=== PATIENT | female | born 1995 | race Asian ===

== ENCOUNTER 2018-08-29 16:30 | Inpatient (IN) | payer OTHER ==
[~2018-08-29] VITALS: Ht 160 cm; Wt 76.8 kg
[~2018-08-29 16:30] MED LIST: PRENAT PO; [UNRECOGNIZED DRUG - CODE] PO
[2018-08-29 18:11] VITALS: Ht 160 cm; Wt 76.8 kg
[2018-08-29 18:12] VITALS: BP 125/80
[2018-08-29] MEDS: LACTATED RINGER'S 1,000 ML IV SCH (20:26)
[2018-08-29] MEDS ORDERED: LIDOCAINE 1% (MPF) 30 ML INJ INJ PRN (20:30)
[2018-08-29] MEDS ORDERED: MISOPROSTOL 200 MCG TAB PR PRN (20:30)
[2018-08-29] MEDS ORDERED: BUTORPHANOL 2 MG INJ IV PRN (20:30)
[2018-08-29] MEDS ORDERED: METHYLERGONOVINE 0.2 MG INJ IM PRN (20:30)
[2018-08-29] MEDS ORDERED: OXYTOCIN 30 UNITS/LR 500 ML IV SCH ×3 (20:30→21:00)
[2018-08-29] MEDS ORDERED: CARBOPROST 250 MCG INJ IM PRN (20:30)
[2018-08-29] MEDS ORDERED: OXYTOCIN 30 UNITS/LR 500 ML IV PRN (20:30)
[2018-08-29] MEDS ORDERED: MISOPROSTOL 50 MCG CAPSULE VAG ONE (21:00)
--- NOTE | 2018-08-29 21:13 | HP ---
Date/Time of Note Date/Time of Note DATE: 08/29/18 TIME: 21:09 OB - History Hx of Present Free Text/Dictation 22 years old 2 para 1001 with single intrauterine at 39 weeks with a MARGARITA of 09/05/2018 complaining of vaginal spotting. She states good movement. She denies nausea, vomiting, shortness of breath, chest pain, headache, visual changes or LOF. Chief Complaint: Vaginal spotting Estimated Due Date: Sep 05, 2018 : 2 Para: 1 Spontaneous : 0 Therapeutic : 0 Care: Good Care Ultrasounds: Normal mid trimester US Obstetrical Complications: None Medical Complications: None Past Family/Social History * Past Medical, Surgical, Family and Obstetric Histories reviewed from chart. Blood Type: O+ Rubella: immune RPR/VDRL: Negative GBS Status: Negative HBsAG: Negative OB Admission Exam Vital Signs Vital Signs Vital Signs Date Temp Pulse Resp B/P (MAP) Pulse Ox O2 O2 Flow FiO2 Time Delivery Rate 08/29/18 98.2 125/80 18:12 (95) Physical Exam HEENT: WNL Heart: Rhythm Normal Lungs: Clear (Valid S1 position on Monday) Abdomen: WNL Extremities: Normal Reflexes: Normal (Delivered) Cervical Dilatation: 1cm Effacement: 25% Station: -2 Membranes: Intact Heart Rate: 130's Accelerations: Accelerations Present Decelerations: No Decelerations Varibility: Moderate Contractions on Admission: >10 Minutes Apart Intensity: Mild Last 72 hours Lab Results CBC & BMP 08/29/18 20:05 OB Assessment/Plan Other plan: 22 years old 2 para 1001 with single intrauterine at 39 weeks with oligo - FHR: No sign of metabolic acidosis- Category I - Continuous EFM, toco - CBC, blood type and screen - Analgesia options with R/B/A discussed in detail with patient - Epidural per patient request - Please see the orders - O+/Rubella: Immune - GBS: Negative Admission, procedures, expectations, risks and possible complications have been discussed in detail with the patient. Risk of vaginal delivery including but not limited to bleeding, infection, cervical laceration, placental retention, injury to fetus, blood transfusion, blood transfusion related infection, risk of anesthesia, adhesion, cervical laceration, episiotomy/laceration, possible delivery with risk of bleeding, infection, injury to other organs (bowel, bladder, ureter, vessels, nerves), injury to fetus, blood transfusion, blood transfusion related infection, risk of anesthesia, scar and hernia formation, needs for future , removal of uterus or any other indicated surgery discussed with the patient. She expressed understanding and repeats the risks. All of her questions were answered. She signed the informed consent. PHYSICIAN'S VERIFICATION OF INFORMED CONSENT The patient was counseled regarding the procedure, its indications, risks, potential complications and alternatives and any questions were answered. Consent was obtained. PLANNED PROCEDURE/TREATMENT: Vaginal delivery, episiotomy, repair of laceration possible delivery JAY PAYNE Aug 29, 2018 21:13
--- NOTE | 2018-08-29 23:11 | TRIAGE ---
OB Triage Datetime Report Generated by CPN: 08/29/2018 23:11 Datetime: 08/29/2018 22:54 Assessment Type: Admission Assessment Vaginal Bleeding: None Maternal Assessment Level of Consciousness: Fully Conscious DTR's/Clonus: DTRs 2+; No Clonus Headache: Denies Blurred Vision: No Respiratory Effort: Unlabored; Regular Rhythm; Equal Expansion Breath Sounds, Left: Clear and Equal Breath Sounds, Right: Clear and Equal Nausea/Vomiting: Denies RUQ Epigastric Pain: Denies Lower Extremities Edema: Bilateral Lower Extremities (Annotations: TRACE) Upper Extremities Edema: Bilateral Upper Extremities (Annotations: TRACE) Facial Edema: None Fall Risk Assessment History of Falling: (0) No Secondary Diagnosis: (0) No Ambulatory Aid: (0) Bedrest/Nurse Assist IV Therapy: (20) Yes Gait: (0) Normal/Bedrest/Immobile Mental Status: (0) Oriented to Own Ability Fall Score: 20 Fall Risk Score Definition: No Risk: No action required Pain Assessment Pain Scale: 0 Pain Presence: None/Denies Pain Type: N/A Membrane Status: Intact Datetime: 08/29/2018 22:52 Time of Arrival: 08/29/2018 22:53 EGA: 39.0 Arrived By: Ambulatory Arrived From: Home Datetime: 08/29/2018 18:25 Comments: up to the Br Datetime: 08/29/2018 18:13 Stage of : OB Triage Labor Evaluation Frequency: 1-7 Monitor Mode: External Duration (sec)2399: 60-80 Pattern: Normal: <= 5 Contractions in 10 Minutes Resting Tone [place]: Relaxed Heart Rate FHR Baseline Rate: 135 Monitor Mode: External US Variability: Moderate 6-25 bpm Accelerations: 15X15 Decelerations: None Category: Category I Datetime: 08/29/2018 17:55 Vaginal Exam Dilatation (cms): 1.0 Effacement (%): 70 Station: -3 Exam By: Justina VALENTIN Datetime: 08/29/2018 17:45 Stage of : OB Triage Assessment Type: Triage Maternal Assessment Level of Consciousness: Fully Conscious DTR's/Clonus: DTRs 2+; No Clonus Headache: Denies Blurred Vision: No Respiratory Effort: Unlabored; Regular Rhythm; Equal Expansion Breath Sounds, Left: Clear and Equal Breath Sounds, Right: Clear and Equal Nausea/Vomiting: Denies RUQ Epigastric Pain: Denies Lower Extremities Edema: None Degree: None Upper Extremities Edema: None Degree: None Facial Edema: None Fall Risk Assessment History of Falling: (0) No Secondary Diagnosis: (0) No Ambulatory Aid: (0) Bedrest/Nurse Assist IV Therapy: (0) No Gait: (0) Normal/Bedrest/Immobile Mental Status: (0) Oriented to Own Ability Fall Score: 0 Fall Risk Score Definition: No Risk: No action required Monitor Mode: External Monitor Mode: External US Datetime: 08/29/2018 17:41 Time of Arrival: 08/29/2018 16:21 EGA: 39.0 Arrived By: Ambulatory Arrived From: Home Chief Complaint: SPOTTING Movement: Present Contractions: Denies/Absent Rupture of Membranes: Denies Vaginal Bleeding: Scant Vaginal Discharge: Present Recent Sexual Intercouse: Denies Abdominal Trauma: Not Applicable Patient Complaints: Other Time Provider Notified: 08/29/2018 17:35 Provider Notified: KERRY Initial Plan: JASON SANTANA MD
[2018-08-29] MEDS: MISOPROSTOL 50 MCG CAPSULE VAG SCH (23:22)
[2018-08-30] MEDS: LACTATED RINGER'S 1,000 ML IV SCH ×5 (02:35→21:56)
[2018-08-30] MEDS: MISOPROSTOL 50 MCG CAPSULE VAG SCH ×4 (03:34→16:03)
[2018-08-30] MEDS ORDERED: OXYTOCIN 30 UNITS/LR 500 ML IV SCH ×2 (08:00→23:30)
[2018-08-30] MEDS ORDERED: MINERAL OIL LIGHT 10 ML VIAL TOP ONE (08:00)
[2018-08-30] MEDS ORDERED: IBUPROFEN 600 MG TAB PO PRN (12:30)
--- NOTE | 2018-08-30 19:38 | PREAC ---
Date/Time of Note Date/Time of Note DATE: 08/30/18 TIME: 19:37 Anesthesia Eval and Record Evaluation Time Pre-Procedure Interview DATE: 08/30/18 TIME: 19:37 Age 22 Sex female NPO: 8 hrs Preoperative diagnosis labor pain Planned procedure epidural Past Medical History Past Medical History: None Surgery & Anesthesia Issues No known issue Meds Anticoagulation: No Beta Citlaly within 24 hr: No Reason Beta Citlaly not given: Pt. not on B-Citlaly Reported Medications Ferrous Sulfate (Iron Supplement) 325 Mg Tablet, 325 MG PO DAILY, TAB 02/10/16 Multivit/Min/Fol Ac/Iron/Pren* ( S*) 1 Tab Tab, 1 TAB PO DAILY, TAB 02/10/16 Current Medications Lactated Ringer's 1,000 ml @ 125 mls/hr Q8H IV Last administered on 08/30/18at 18:45; Admin Dose 125 MLS/HR; Start 08/29/18 at 20:18 Butorphanol Tartrate (Stadol) 2 mg Q2H PRN IV .PAIN Last administered on 08/30/18at 15:02; Admin Dose 2 MG; Start 08/29/18 at 20:30 Lidocaine (Xylocaine 1% (Mpf)) 30 ml ONCE PRN INJ .EPISIOTOMY; Start 08/29/18 at 20:30 Oxytocin/Lactated Ringer's 500 ml @ 500 mls/hr ONCE POST IV ; Start 08/29/18 at 20:30 Oxytocin/Lactated Ringer's 500 ml @ 125 mls/hr POST IV ; Start 08/29/18 at 20:30 Oxytocin/Lactated Ringer's 500 ml @ 0 mls/hr ONCE PRN IV .VAGINAL BLEEDING; Start 08/29/18 at 20:30 Methylergonovine Maleate (Methergine) 0.2 mg ONCE PRN IM .VAGINAL BLEEDING; Start 08/29/18 at 20:30 Carboprost Tromethamine (Hemabate) 250 mcg ONCE PRN IM .VAGINAL BLEEDING; Start 08/29/18 at 20:30 Misoprostol (Cytotec) 1,000 mcg ONCE PRN AR .VAGINAL BLEEDING; Start 08/29/18 at 20:30 Oxytocin/Lactated Ringer's 500 ml @ 0 mls/hr FOR INDUCTION IV ; Start 08/29/18 at 21:00 Misoprostol (Cytotec 50 Mcg Capsule) 50 mcg Q4H VAG Last administered on 08/30/18at 16:03; Admin Dose 50 MCG; Start 08/29/18 at 23:00 Oxytocin/Lactated Ringer's 500 ml @ 0 mls/hr FOR AUGMENTATION IV ; Start 08/30/18 at 08:00 Ibuprofen (Motrin) 600 mg ONCE PRN PO .PAIN 1-5; Start 08/30/18 at 12:30 Meds reviewed: Yes Allergies Coded Allergies: No Known Drug Allergies (Verified Allergy, Unknown, 08/29/18) Allergies Reviewed: Yes Labs/Studies Labs Reviewed: Reviewed by anesthesiologist Result Diagram: 08/29/182004 Laboratory Tests 08/29/18 20:05 Blood Bank Test 08/29/18 20:05 Antibody Screen NEGATIVE Blood Type O POSITIVE Rh Immune Globulin Candidate NO test: Positive Studies: ECG (n/a), CXR (n/a) Pre-procedure Exam Last vitals Vital Signs Date Temp Pulse Resp B/P (MAP) Pulse Ox O2 O2 Flow FiO2 Time Delivery Rate 08/29/18 98.2 125/80 18:12 (95) Airway: Adequate mouth opening Mallampati: Mallampati I Teeth: Normal Lung: Normal Heart: Normal ASA Physical Status ASA physical status: 2 Emergency: None Planned Anesthetic Neuraxial: Epidural Pre-operative Attestations Prior to commencing anesthesia and surgery, the patient was re-evaluated, there was verification of: *The patient's identity *The results of appropriate recent lab work and preoperative vital signs *The above evaluation not changing prior to induction *Anesthetic plan, risk benefits, alternative and complications discussed with patient/family; questions answered; patient/family understands, accepts and wishes to proceed. YENI GANDHI MD Aug 30, 2018 19:38
[2018-08-30] MEDS ORDERED: NALOXONE (0.4 MG/ML) INJ IV PRN (20:30)
[2018-08-30] MEDS ORDERED: FENTAnyl 2MCG/ML-ROPIV 0.2% 100 ML BAG EPI SCH (20:30)
[2018-08-31] MEDS ORDERED: MINERAL OIL LIGHT 10 ML VIAL TOP ONE (06:30)
--- NOTE | 2018-08-31 06:39 | LDN ---
Date/Time of Note Date/Time of Note DATE: 08/31/18 TIME: 06:37 Delivery Summary of normal male Weeks of Gestation 39w Placenta Delivered: Spontaneously, Intact & Complete Meconium: none Episiotomy: No Perineal laceration: 2 Laceration repair: 00 ch gut Anesthesia type: Local Estimated blood loss: 80 Sponge & Needle done & correct: Yes All needle counts correct: Yes Any foreign bodies felt in the: No Infant Delivery Information Sex Sex: male Apgars 1 Minute: 8 5 Minute: 9 Suctioning Nose & mouth suctioned at jose david: Yes Delee suction performed: Yes Umbilical Cord Umbilical cord with: 3 Vessels Cord presentations: no nuchal cord Cord Blood was obtained: Yes Mother & Baby Disposition Disposition Mom & Baby to Maternity; Good: Yes Baby to NICU: No () MARIA JOHNS MD Aug 31, 2018 06:39
--- NOTE | 2018-08-31 07:45 | PAC ---
Date/Time of Note Date/Time of Note DATE: 08/31/18 TIME: 07:45 Post-Anesthesia Notes Post-Anesthesia Note Last documented vital signs Vital Signs Date Temp Pulse Resp B/P (MAP) Pulse Ox O2 O2 Flow FiO2 Time Delivery Rate 08/31/18 98.2 99 18 115/70 99 07:12 (95) Activity: WNL Respiratory function: WNL Cardiovascular function: WNL Mental status: Baseline Pain reasonably controlled: Yes Hydration appropriate: Yes Nausea/Vomiting absent: No YENI GANDHI MD Aug 31, 2018 07:45
[2018-08-31 08:20] VITALS: BP 118/86; PULSE 78; RESP 16
[2018-08-31] MEDS ORDERED: BENZOCAINE 20% 56 ML SPRAY TOP PRN (08:30)
[2018-08-31] MEDS ORDERED: OXYCODONE/ASPIRIN (4.88/325) TAB PO PRN ×2 (08:30)
[2018-08-31] MEDS ORDERED: LANOLIN HPA 1 PKT TOP PRN (08:30)
[2018-08-31] MEDS ORDERED: OXYTOCIN 30 UNITS/LR 500 ML IV PRN (08:30)
[2018-08-31] MEDS ORDERED: ZOLPIDEM 5 MG TAB PO PRN (08:30)
[2018-08-31] MEDS ORDERED: METHYLERGONOVINE 0.2 MG INJ IM PRN (08:30)
[2018-08-31] MEDS ORDERED: WITCH HAZEL/GLYCERIN PAD PR PRN (08:30)
[2018-08-31] MEDS ORDERED: CARBOPROST 250 MCG INJ IM PRN (08:30)
[2018-08-31] MEDS ORDERED: MISOPROSTOL 200 MCG TAB PR PRN (08:30)
[2018-08-31] MEDS: SENNA/DOCUSATE NA (8.6MG/50MG) TAB PO SCH ×2 (09:41→21:49)
[2018-08-31] MEDS: IBUPROFEN 600 MG TAB PO SCH ×3 (12:21→23:37)
[2018-08-31 16:00] VITALS: BP 115/76; PULSE 70; RESP 18
[2018-08-31] MEDS: LACTATED RINGER'S 1,000 ML IV SCH (20:18)
[2018-08-31 20:25] VITALS: BP 115/80; PULSE 71; RESP 17
[2018-09-01 04:00] VITALS: BP 124/77; PULSE 80; RESP 18
[2018-09-01] MEDS: LACTATED RINGER'S 1,000 ML IV SCH ×2 (04:18→12:18)
[2018-09-01] MEDS: IBUPROFEN 600 MG TAB PO SCH ×4 (05:50→23:49)
[2018-09-01 08:45] VITALS: BP 111/76; PULSE 66; RESP 16
[2018-09-01] MEDS: SENNA/DOCUSATE NA (8.6MG/50MG) TAB PO SCH ×2 (08:50→20:29)
[2018-09-01 16:15] VITALS: BP 109/69; PULSE 69; RESP 16
[2018-09-01 21:00] VITALS: BP 120/75; PULSE 66; RESP 17
[2018-09-02 03:43] VITALS: BP 116/79; PULSE 71; RESP 17
[2018-09-02] MEDS: IBUPROFEN 600 MG TAB PO SCH ×2 (05:32→12:07)
[2018-09-02 08:40] VITALS: BP 115/70; PULSE 79; RESP 16
[2018-09-02] MEDS ORDERED: DIPHTH/TET/ACEL PERTUSS (ADULT) 0.5 ML VIAL IM* ONE (09:00)
[2018-09-02] MEDS: SENNA/DOCUSATE NA (8.6MG/50MG) TAB PO SCH (09:56)
--- NOTE | 2018-09-02 11:12 | PN ---
Date/Time of Note Date/Time of Note DATE: 09/02/18 TIME: 11:10 OB Subjective Subjective Subjective Late entry note. Patient seen on 09/01/2008 PPD# 1 Patient is doing well. She denies nausea, vomiting, shortness of breath, chest pain, headache. She has been ambulating without difficulty, tolerating regular diet. Pain is well controlled on current medications OB Objective Objective Objective General: AAO X 3, comfortable, NAD, appropriate mood and affect. ABD: +BS. Soft, non-tender. Uterus 2 cm below umbilicus Flank: No CVA tenderness (B/L) LE: Mild edema. No clubbing, cyanosis, thigh or calf tenderness (B/L). Homans 'sign is negative OB Assessment/Plan Other plan: 22 years old 2 para 2001 at 39 weeks and 2 days s/p normal vaginal delivery. PPD#1 - AF, VSS - Baby is doing well, at bed side. She is bonding well - Contraception methods with R/B/A/FR discussed - Continue care - Discharge home tomorrow - Rx and instruction given - Follow up in 2 and 6 weeks at clinic JAY PAYNE Sep 02, 2018 11:12
--- NOTE | 2018-09-02 11:14 | DS ---
Date/Time of Note Date/Time of Note DATE: 09/02/18 TIME: 11:13 Obstetrical Discharge Record Final Diagnosis Final Diagnosis: Term delivered Other Final Diagnosis 22 years old 2 para 2001 at 39 weeks and 2 days s/p normal vaginal delivery. PPD#1. course was unremarkable. She is ambulating and tolerating regular diet. She is voiding without difficulty. Pain is controlled on current medication - AF, VSS - Baby is doing well, at bed side. She is bonding well - Contraception methods with R/B/A/FR discussed - Continue care - Discharge home - Rx and instruction given - Follow up in 2 and 6 weeks at clinic Complications Induction: Yes (Oligohydramnios) Condition on Discharge Physical Assessment Last Vitals: Vital Signs Date Temp Pulse Resp B/P (MAP) Pulse Ox O2 O2 Flow FiO2 Time Delivery Rate 09/02/18 98.2 71 17 116/79 Room Air 03:43 (91) Voiding: Yes Bowel Movement: Yes Breast: Soft, non-tender Fundus: Firm Calf Tenderness: No Patient Condition: Stable JAY PAYNE Sep 02, 2018 11:14
--- NOTE | 2018-09-02 19:32 | QN ---
Documentation Comment This is a late entry note for 09/01/2018 day #1 Status post Patient stable and afebrile Tolerating regular diet and ambulating and voiding without any difficulties Vital signs stable VS - Last 72 Hours, by Label Date Temp Pulse Resp B/P (MAP) Pulse Ox O2 O2 Flow FiO2 Time Delivery Rate 09/02/18 98.0 79 16 115/70 Room Air 08:40 (85) 09/02/18 98.2 71 17 116/79 Room Air 03:43 (91) 09/01/18 98.2 66 17 120/75 Room Air 21:00 (90) 09/01/18 98.3 69 16 109/69 Room Air 16:15 (82) 09/01/18 97.8 66 16 111/76 Room Air 08:45 (88) 09/01/18 98.3 80 18 124/77 Room Air 04:00 (93) 08/31/18 98.1 71 17 115/80 Room Air 20:25 (92) 08/31/18 97.9 70 18 115/76 Room Air 16:00 (89) 08/31/18 98.3 78 16 118/86 Room Air 08:20 (97) Hematology - 72 Hrs Test 09/01/18 06:40 Hematocrit 30.1 % (37.0-47.0) #L Hemoglobin 9.8 g/dl (12.0-16.0) #L Mean Corpuscular Hemoglobin 30.5 pg (29.0-33.0) Mean Corpuscular Hemoglobin Concent 32.6 g/dl (32.0-37.0) Mean Corpuscular Volume 93.8 fl (82.0-101.0) Mean Platelet Volume 11.5 fl (7.4-10.4) H Platelet Count 133 10^3/UL (140-415) #L Red Blood Count 3.21 10^6/ul (4.20-5.40) #L Red Cell Distribution Width 14.6 % (11.5-14.5) H White Blood Count 7.8 10^3/ul (4.8-10.8) Abdomen soft, fundus firm Perineum intact Extremities nontender Assessment and plan; Patient stable and doing well continue with routine care NAVEED CHASE MD Sep 02, 2018 19:32
--- NOTE | 2018-09-03 14:56 | DELSUM ---
Delivery Summary A-C Datetime Report Generated by CPN: 09/03/2018 14:56 DELIVERY PERSONNEL Template Inspector: Sujatha Mistry MATERNAL INFORMATION Delivery Anesthesia: Epidural Medications in Delivery: lidocaine, 30 units pitocin in 500ml LR Delivery QBL (ml): 80 Placenta Cultured: No Maternal Complications: Other RN Comments: oligo induction, last baby 2 yrs ago LABOR SUMMARY EDC: 09/05/2018 00:00 No. Babies in Womb: 1 Attempted: No Labor Anesthesia: None LABOR INFORMATION Reason for Induction: Oligohydramnios Onset of Labor: 08/30/2018 12:17 Complete Dilatation: 08/31/2018 05:49 Cervical Ripening Agents: Cytotec @ 50 Oxytocin: Induction Group B Beta Strep: Negative Steroids Given: None Reason Steroids Not Administered: Not Applicable MEMBRANES Membranes Rupture Method: Spontaneous Rupture of Membranes: 08/31/2018 05:50 Length of Rupture (hr): 0.28 Amniotic Fluid Color: Clear Amniotic Fluid Amount: Moderate Amniotic Fluid Odor: None STAGES OF LABOR Stage 1 hr: 17 Stage 1 min: 32 Stage 2 hr: 0 Stage 2 min: 18 Stage 3 hr: 0 Stage 3 min: 5 Total Time in Labor hr: 17 Total Time in Labor min: 55 VAGINAL DELIVERY Episiotomy: None Laceration Extension: Second Degree Laceration Type: Perineal Laceration Repair: Yes Initial Vag Sponge Count: 10 Final Vag Sponge Count: 10 Initial Vag Sharps Count: 1 Final Vag Sharps Count: 2 Sponge Count Correct: Yes; Vaginal Sweep Performed Sharps Count Correct: Yes BABY A INFORMATION Infant Delivery Date/Time: 08/31/2018 06:07 Method of Delivery: Vaginal Born in Route : No : N/A Forceps: N/A Vacuum Extraction: N/A Shoulder Dystocia : No SHOULDER DYSTOCIA BABY A Infant Delivery Date/Time: 08/31/2018 06:07 PRESENTATION/POSITION BABY A Presentation: Cephalic Cephalic Presentation: Vertex Vertex Position: Left Occipital Anterior Breech Presentation: N/A PLACENTA INFORMATION BABY A Placenta Delivery Time : 08/31/2018 06:12 Placenta Method of Delivery: Spontaneous Placenta Status: Delivered SCORES BABY A Heart Rate 1 min: >100 bpm Resp Effort 1 min: Good Cry Reflex Irritability 1 min: Cough/Sneeze/Pulls Away Muscle Tone 1 min: Active Motion Color 1 min: Body [place], Extremit Blue Resuscitation Effort 1 min: Tactile Stimulation SCORE 1 MIN: 9 Heart Rate 5 min: >100 bpm Resp Effort 5 min: Good Cry Reflex Irritability 5 min: Cough/Sneeze/Pulls Away Muscle Tone 5 min: Active Motion Color 5 min: Body [place], Extremit Blue Resuscitation Effort 5 min: Tactile Stimulation SCORE 5 MIN: 9 INFANT INFORMATION BABY A Gestational Age at Delivery: 39.2 Gestational Status: Full Term- 39- 40.6 Weeks Outcome : Liveborn Infant Condition : Stable Sex: Male IDENTIFICATION/MEDS BABY A ID Band Number: [id number] ID Band Location: Right Leg; Left Arm Sensor Applied: Yes Sensor Number: [id number] Sensor Location : Cord Clamp Vitamin K Given : Not Given Erythromycin Given: Not Given WEIGHT/LENGTH BABY A Birthweight (gm): 3170 Weight (lb): 7 Infant Weight (oz): 0 Infant Length (in): 19.50 Length (cm): 49.53 CORD INFORMATION BABY A No. Cord Vessels: 3 Nuchal Cord : N/A Cord Blood Taken: Yes Suction: Mouth; Nose ASSESSMENT BABY A Complications: Oligohydramnios Physical Findings at Delivery: Within Normal Limits Respirations: Appears Normal Photocopying Equipment Mechanic/ALS Called : No Infant Care By: ROZINA Transferred To: Remains with Mother
== END 2018-09-02 14:55 | disposition home or self-care (01) | DRG 807 ==
LOC: OBT 16:30 → L-D 16:31 → OBT 19:40 → L-D 19:44 → PP1 08-31 08:20
PROVIDERS: ADMIT Obstetrics & Gynecology; ATTEND Obstetrics & Gynecology
PROC: 10E0XZZ Delivery of Products of Conception, External Approach (ICD-10-PCS; principal; 2018-08-31)
PROC: 0KQM0ZZ Repair Perineum Muscle, Open Approach (ICD-10-PCS; 2018-08-31)
PROC: 3E033VJ Introduction of Other Hormone into Peripheral Vein, Percutaneous Approach (ICD-10-PCS; 2018-08-31)
DX: O70.1 Second degree perineal laceration during delivery (principal); Z37.0 Single live birth; Z3A.39 39 weeks gestation of pregnancy
CPT/HCPCS: 62319; 76815; 76818; 85025; 85610; 85730; 86592; 86850; 86900; 86901; 87340; 90686; 90715; G0463; J0595; J2590; J3010; J7120